=== PATIENT | female | born 2000 | race Caucasian/White ===

== ENCOUNTER → 2021-01-21 | Outpatient (CLI) | payer OTHER ==
[~2021-01-21] MED LIST: HOLD METFORMIN - RECEIVED CONTRAST 20 ML VIAL IV SCH; IOHEXOL 350 MG/ML 100 ML (OMNIPAQUE 350) VIAL IV ONE; NS 100 ML (IVPB) BAG IV ONE
[2021-01-21] MEDS: CATHETER FLUSH 10 ML SYR IV PRN ×2 (14:49→14:50)
--- NOTE | 2021-01-21 15:07 | Diagnostic Imaging Report ---
PROCEDURE: CT abdomen and pelvis with contrast, rule out appendicitis. TECHNIQUE: Multiple contiguous axial images were obtained through the abdomen and pelvis after the administration of intravenous contrast. All CT scans use one or more of the following dose optimizing techniques: automated exposure control, MA and/or KvP adjustment based on patient size and exam type or iterative reconstruction. INDICATION: Right lower quadrant pain with elevated white blood cell count and vomiting. COMPARISON: No prior studies are available for comparison. FINDINGS: The lung bases are clear. The liver is unremarkable. Gallbladder is unremarkable. There is no biliary ductal dilatation. The pancreas and spleen are unremarkable. No adrenal mass is detected. Kidneys are unremarkable. There is no hydronephrosis. Aorta is nonaneurysmal. Bowel loops appear to be normal in caliber. There is no obstruction. The appendix is visualized in the right lower quadrant and is unremarkable. No definite evidence of acute appendicitis is identified. No periappendiceal inflammation is detected. Uterus, ovaries, and bladder are unremarkable. There is no free fluid or fluid collection. There is no free air. IMPRESSION: Unremarkable CT of abdomen and pelvis with contrast. There is no CT evidence of acute appendicitis. Dictated by: Dictated on workstation # [id number]
== END ==
LOC: RAD 14:26
PROVIDERS: ATTEND Internal Medicine
DX: D72.829 Elevated white blood cell count, unspecified (principal); R10.31 Right lower quadrant pain; R11.10 Vomiting, unspecified
CPT/HCPCS: 74177